=== PATIENT | female | born 1975 | race Caucasian/White ===

== ENCOUNTER 2016-07-25 16:38 | Emergency (ER) | payer OTHER ==
[~2016-07-25] VITALS: Ht 177.8 cm; Wt 109.1 kg
[~2016-07-25 16:38] MED LIST: OMEP20TA86 PO
[2016-07-25 16:52] VITALS: BP 164/90; PULSE 82; RESP 18; O2SAT 100
[2016-07-25] MEDS ORDERED: MetoCLOpramide 5 mg/mL 2 mL Inj IVPUSH ONE (18:05)
[2016-07-25] MEDS ORDERED: Donnatal-Lido-Mylant 1:1:1 15 mL Syringe PO ONE (18:05)
--- NOTE | 2016-07-25 18:10 | ED.REPORT ---
HPI-Abd Pain F 40 and Over Date of Service Jul 25, 2016 ED Provider: Angel Mccabe PA-C Tanya is a 41-year-old female otherwise healthy with a chief complaint of epigastric pain. States it is stabbing, rates it 8/10 and has been present for 5 days. She cannot differentiate what may aggravate or ameliorated. She states she has a long history of abdominal pain persisting by providers and not gotten diagnoses. She had an upper endoscopy done 1-2 years ago which noted a small hernia and some stomach inflammation according to the patient. She has been prescribed omeprazole which she reports taking daily. Today she denies vomiting, diarrhea, black/tarry stools, fever, chills, malaise, urinary symptoms. Denies history of hypertension, hyperlipidemia, diabetes, cardiac disease, cocaine or methamphetamine use or smoking. Nursing Notes Stated Complaint: ABDOMINAL PAIN, WEAKNESS Chief Complaint: Female Abdominal Pain Nursing Notes Reviewed: Yes Allergies: Coded Allergies: Sulfa (Sulfonamide Antibiotics) (Verified Allergy, Intermediate, HIVES, ) Scheduled Omeprazole (Omeprazole) 20 Mg Tablet.dr 20 MG PO DAILY Ondansetron ODT (Ondansetron ODT) 8 Mg Tab.rapdis 8 MG PO TID Scheduled PRN oxyCODONE (oxyCODONE) 5 Mg Tablet 5-10 MG PO Q4H PRN PRN For Pain General Time Seen by MD: 17:48 Chief Complaint Abdominal pain Sudden in Onset?: No Past Medical History Past Medical History Kidney stones Smoking History Never Smoker Review of Systems General: Denies fever, chills, malaise. HEENT: Denies congestion, headache, sore throat. Respiratory: Denies dyspnea, cough, shortness of breath, wheezing. Cardiovascular: Denies chest pain, palpitations. Gastrointestinal: Admits abdominal pain. Denies vomiting, diarrhea Genitourinary: Denies frequency, urgency, dysuria, hematuria. Otherwise as noted in HPI. Physical Exam General: Well appearing, well developed, obese, no acute distress. Appears to be resting comfortably on the gurney. Head: Atraumatic, normocephalic. Eyes: No scleral icterus or injection. No discharge. Vision grossly intact. ENT: Voice clear, hearing grossly intact. Respiratory: Regular rate and rhythm. Breath sounds present, clear to auscultation and equal bilaterally. No respiratory distress. No increased work of breathing, speaks in complete sentences. Cardiovascular: Regular rate and rhythm, without murmur, gallop or rub. No pedal edema. Gastrointestinal: Obese abdomen mildly tender in upper quadrants without guarding or rebound. Bowel sounds normoactive. Skin: Warm and dry. Rectal: No hemorrhoids, masses, normal tone. Negative tenderness. Stool guaiac negative. Neurological: Grossly nonfocal. Psychological: Alert and oriented. Speech appropriate, linear and logical. Behavior appropriate. Vital Signs Vital Signs (First) Date Time Temp Pulse Resp B/P Pulse Ox O2 Delivery O2 Flow Rate FiO2 07/25/16 16:52 36.6 82 18 164/90 100 07/25/16 20:53 Room Air Initial VS: Reviewed, Vital signs abnormal (elevated blood pressure) Interpretation & Diagnostics Interpretation & Diagnostics: Stool guaiac negative Lab Results Interpretation Result Diagram: 07/25/16 1832 07/25/16 1832 Test 07/25/16 18:20 07/25/16 18:32 Hold Urine Received (Received) White Blood Count 9.6th/mm3 (3.8-10.1) Red Blood Count 4.54mil/mm3 (3.90-5.20) Hemoglobin 7.9g/dL (12.0-15.6) Hematocrit 28.5% (35.0-46.0) Mean Corpuscular Volume 62.8fL (81-100) Mean Corpuscular Hemoglobin 17.4pg (27.0-35.0) Mean Corpuscular Hemoglobin Concent 27.7% (32.0-37.0) Red Cell Distribution Width 19.8% (12.3-15.4) Platelet Count 240bil/L (150-400) Neutrophils (%) (Auto) 62.6% (40-74) Lymphocytes (%) (Auto) 22.1% (14-46) Monocytes (%) (Auto) 7.2% (4-12) Eosinophils (%) (Auto) 7.1% (0-5) Basophils (%) (Auto) 0.9% (0-3) Sodium Level 137mEq/L (134-144) Potassium Level 3.4mEq/L (3.5-5.2) Chloride Level 100mEq/L (97-108) Carbon Dioxide Level 20mmol/L (18-29) Blood Urea Nitrogen 9mg/dL (6-24) Creatinine 0.50mg/dL (0.57-1.00) Estimat Glomerular Filtration Rate 193mL/min (>59) Glucose Level 105mg/dL (60-99) Calcium Level 9.1mg/dL (8.5-10.1) Total Bilirubin 0.2mg/dL (0.0-1.2) Aspartate Amino Transf (AST/SGOT) 17U/L (0-50) Alanine Aminotransferase (ALT/SGPT) 10U/L (0-32) Alkaline Phosphatase 56U/L (25-150) Total Protein 6.9g/dL (6.4-8.4) Albumin 3.7g/dL (3.4-5.0) Lipase 37U/L (13-60) Urinalysis Interpretation Urinalys reviewed and NL Re-Eval/Medical Decision Med Decision/Clinical Course 31-year-old female with a history of kidney stones and abdominal pain presents with abdominal pain. She describes epigastric pain rates 8/10 and describes a stabbing without radiation. Denies red flag symptoms for upper GI bleeding. Minimal response to GI cocktail, acetaminophen. Physical examination reveals only extremely mild tenderness in the upper quadrants. Stool guaiac is negative. Vital signs are normal. CMP revealed Mild hypokalemia, , low creatinine, normal nonfasting glucose. Not thought to be clinically relevant. CBC revealed a microcytic anemia with hematocrit of 28.5 and hemoglobin of 7.9. test negative. Urinalysis negative. I am reassured this unlikely cholecystitis, pancreatitis, bleeding ulcer, small bowel obstruction, nephrolithiasis, pyelonephritis. I also have little concern for cardiac in etiology as she has few risk factors and an atypical presentation. I believe she is stable and safe to be discharged home. Advise continuing omeprazole, [id number] analgesia and a small amount of oxycodone supplement. Advised close primary care follow-up and provided return precautions. I discussed this case with Dr. Alexis. Discharge & Departure Primary Impression: Abdominal pain Abdominal location: epigastric Qualified Code: R10.13 - Epigastric pain Additional Impression: Elevated blood pressure Disposition: Home Discharge Condition All VS Reviewed: Yes Condition: Stable Patient Instructions: Acute Abdominal Pain (ED) Additional Instructions: Evaluation in emergency department for abdominal pain. History physical, labs and urinalysis reassuring that there is no immediately dangerous process going on. No indication that you are bleeding in your stomach. I believe you are stable and safe to be discharged at this time. Pain is best managed with 1000 mg of acetaminophen (Tylenol) taken every 6 hours. I will write a prescription for a small amount of oxycodone to be taken every 4-6 hours for pain not controlled by the Tylenol. Please do not drive or drink alcohol within 4 hours of taking this medication. I will provide him a prescription for Zofran to help with nausea. Continue taking your omeprazole as prescribed. Contact your primary care provider tomorrow to arrange follow-up as soon as possible. Return to emergency department for any new or worsening symptoms including increasing pain, vomiting that does not respond to medication, or black/tarry stool. Referrals: Vero Ervin PA-C (PCP) EDSupervising Provider for APC: Paul Alexis MD copies to: Vero Ervin PA-C, Seth PA-C Jul 25, 2016 18:10
[2016-07-25] MEDS ORDERED: Diphen-Lido-Mylanta 1:1:1 Susp 120 mL PO ONE (18:40)
[2016-07-25 18:49] LABS: Mean Corpuscular Hemoglobin 17.4 pg (27.0-35.0); Mean Corpuscular Volume 62.8 fL (81-100); Platelet Count 240 bil/L (150-400)
[2016-07-25 18:53] LABS: BASOPHILS % (AUTO) 0.9 % (0-3); EOSINOPHILS % (AUTO) 7.1 % (0-5); MONOCYTES % (AUTO) 7.2 % (4-12); NEUTROPHILS % (AUTO) 62.6 % (40-74)
[2016-07-25] MEDS ORDERED: OXYC5TAB72 PO (20:31)
[2016-07-25] MEDS ORDERED: ONDA8TAB10 PO (20:31)
[2016-07-25 20:53] VITALS: BP 132/76; PULSE 77; RESP 18; O2SAT 100
[2016-08-15] MEDS ORDERED: PRE20 PO (10:06)
== END 2016-07-25 20:54 | disposition home or self-care (01) ==
LOC: SED 16:38
DX: R10.13 Epigastric pain (principal); R03.0 Elevated blood-pressure reading, without diagnosis of hypertension; Z87.442 Personal history of urinary calculi; Z88.2 Allergy status to sulfonamides

== ENCOUNTER 2016-08-03 12:05 | Observation (INO) | payer OTHER ==
[~2016-08-03] VITALS: Ht 177.8 cm; Wt 111.1 kg
[2016-08-03] VITALS (10 sets, daily range): BP systolic 110–135; BP diastolic 68–85; PULSE 64–83; RESP 10–20; O2SAT 98–100
[~2016-08-03 12:05] MED LIST changes: +ONDA8TAB10 PO; +OXYC5TAB72 PO
--- NOTE | 2016-08-03 12:16 | ED.REPORT ---
HPI-General Illness Date of Service Aug 03, 2016 ED Provider: Mauricio Ng MD 41 y/o female with the hx of chronic abdominal pain of unclear etiology presents to the ED as requested by her PCP due to low Hgb level. Pt complains of worsening fatigue, dizziness, and generalized weakness onset two months ago, worsening within the past 1 week. She presented to the ED on 07/25 for abd pain at which time basic labs were taken which showed a HGB of 7.4. She denies hematochezia, black tarry stool, syncope, chest pain, hemoptysis, melena, and SOB. She is currently on her period and believes her symptoms are increased at this time. She does not take iron supplements and has never had a blood transfusion. Colonoscopy and endoscopy were normal in the past. Nursing Notes Stated Complaint: RED BLOOD CELL COUNT LOW,WEAK,LIGHTHEADED Chief Complaint: General Complaint Nursing Notes Reviewed: Yes Allergies: Coded Allergies: Sulfa (Sulfonamide Antibiotics) (Verified Allergy, Intermediate, HIVES, ) Scheduled Omeprazole (Omeprazole) 20 Mg Tablet.dr 20 MG PO DAILY Scheduled PRN Ondansetron ODT (Ondansetron ODT) 8 Mg Tab.rapdis 8 MG PO TID PRN PRN For Nausea /Vomiting oxyCODONE (oxyCODONE) 5 Mg Tablet 5-10 MG PO Q4H PRN PRN For Pain General Time Seen by MD: 12:12 Chief Complaint Other (Fatigue) Hx Obtained From: Patient Arrived By: Walk-in Sudden in Onset?: No Onset Occurred: More than a week ago... (2 months) Symptom Duration: Constant Severity: Current: No pain currently Severity: Maximum: No pain Recent Healthcare: Recent doctor visit, Recent testing Past Medical History Past Medical History GERD Hiatal hernia Chronic abdominal pain - unclear etiology Hx kidney stones Past Surgical History Lithotripsy Family History Colon CA Smoking History Never Smoker Social History Alcohol Use: Denies alcohol use Drug Use: Denies drug use Ambulatory Status Independent Review of Systems Full Review of Systems Constitutional: Reports: Fatigue, Weakness - generalized Respiratory: Denies: Prod cough, bloody, Shortness of breath Cardiovascular: Denies: Chest pain GI: Reports: Abdominal pain (chronic), Denies: Bloody/tarry stool, Hematochezia, Melena, Nausea, Vomiting Neurologic: Reports: Dizziness, Lightheaded, Denies: Syncope Complete sys rev & neg: except as marked. Physical Exam Vital Signs Vital Signs Date Time Temp Pulse Resp B/P Pulse Ox O2 Delivery O2 Flow Rate FiO2 08/03/16 12:07 37.0 83 10 135/84 100 Room Air Initial VS: Reviewed, Vital signs normal Head / Eyes: Atraumatic, Normocephalic, PERRL ENT: Mucous membranes moist, Conjunctiva normal, No scleral icterus Neck: Supple, Full range of motion Respiratory: Breath sounds normal, Clear to auscultation, No respiratory distress Cardiovascular: Regular rate & rhythm, Heart sounds normal, Intact distal pulses Extremities: Vascular intact, Neuro intact, No swelling, No tenderness Skin: Warm, Dry, No cyanosis Neurologic: Alert, Oriented, Nonfocal Psychiatric: Mood/affect normal, Behavior normal, Normal thought content General/Constitutional: Awake, Alert, No acute distress, Cooperative, Not toxic appearing Abdomen: Atraumatic, Soft, Non-tender, No guarding, No rebound Rectum / Perineum: Blood - occult heme -, No gross blood Interpretation & Diagnostics Lab Results Interpretation Result Diagram: 08/03/16 1230 08/03/16 1230 Test 08/03/16 12:30 White Blood Count 8.8th/mm3 (3.8-10.1) Red Blood Count 4.30mil/mm3 (3.90-5.20) Hemoglobin 7.3g/dL (12.0-15.6) Hematocrit 27.5% (35.0-46.0) Mean Corpuscular Volume 64.0fL (81-100) Mean Corpuscular Hemoglobin 17.0pg (27.0-35.0) Mean Corpuscular Hemoglobin Concent 26.5% (32.0-37.0) Red Cell Distribution Width 19.7% (12.3-15.4) Platelet Count 297bil/L (150-400) Neutrophils (%) (Auto) 68.3% (40-74) Lymphocytes (%) (Auto) 18.9% (14-46) Monocytes (%) (Auto) 6.7% (4-12) Eosinophils (%) (Auto) 4.1% (0-5) Basophils (%) (Auto) 1.9% (0-3) Prothrombin Time 9.8sec (8.1-12.5) Prothromb Time International Ratio 0.92ratio Sodium Level 140mEq/L (134-144) Potassium Level 3.6mEq/L (3.5-5.2) Chloride Level 102mEq/L (97-108) Carbon Dioxide Level 22mmol/L (18-29) Blood Urea Nitrogen 10mg/dL (6-24) Creatinine 0.66mg/dL (0.57-1.00) Estimat Glomerular Filtration Rate 140mL/min (>59) Glucose Level 87mg/dL (60-99) Calcium Level 9.0mg/dL (8.5-10.1) Iron Level 15ug/dL (35-150) Total Iron Binding Capacity 357ug/dL (250-450) Percent Iron Saturation 4%sat (15-50) Unsaturated Iron Binding 342.0ug/dL Ferritin 6ng/mL (13-150) Total Bilirubin 0.2mg/dL (0.0-1.2) Aspartate Amino Transf (AST/SGOT) 15U/L (0-50) Alanine Aminotransferase (ALT/SGPT) 8U/L (0-32) Alkaline Phosphatase 60U/L (25-150) Total Protein 6.7g/dL (6.4-8.4) Albumin 3.8g/dL (3.4-5.0) Hold Moss Top Tube Received (Received) Re-Eval/Medical Decision Med Decision/Clinical Course 41-year-old female history of chronic anemia and chronic abdominal pain sent in by primary doctor for hemoglobin of 7.4 and dizziness. She was checked one week ago with a hemoglobin of 7.9. She is on her period which she reports has been heavy. No blood in her stools. She has had normal colonoscopies in the past. She is guaiac negative here. She still complaining of dizziness and her hemoglobin is 7.3. Worsening dizziness. Will admit for blood transfusion with 2 units given symptomatic anemia. Observation. Time of Eval: 14:43 Re-Evaluation/Progress Note: Pt rechecked. Informed pt of need for admission. pt understand and agrees with plan for admission. All questions addressed. Consultation : Referral / Consult Name: Vitaliy Monzon MD Consulted With: Hospitalist Call Returned at: 14:42 Tower Technician: Will see patient, Agrees with eval, Agrees with plan, Accepts admit Counseled Regarding: Diagnosis, Lab results, Need for admission Discharge & Departure Primary Impression: Symptomatic anemia Disposition: ADMITTED TO HOSPITAL Discharge Condition All VS Reviewed: Yes Condition: Stable Referrals: Adriano Rosa DO (PCP) Scribe Attestation Portions of this note were transcribed by Elina Winter and Clifton Tonwsend. I, Dr. Ng personally performed the history, physical exam and medical decision-making;I reviewed and confirmed the accuracy of the information in the transcribed note. Signed by Elina Winter and Jeannie May. 08/03/16. 1446 copies to: Adriano Rosa Ben M MD Aug 03, 2016 12:16 Elina Winter Aug 03, 2016 12:25 CLIFTON TOWNSEND Aug 03, 2016 13:42
[2016-08-03 12:43] LABS: BASOPHILS % (AUTO) 1.9 % (0-3); EOSINOPHILS % (AUTO) 4.1 % (0-5); MONOCYTES % (AUTO) 6.7 % (4-12); NEUTROPHILS % (AUTO) 68.3 % (40-74); Platelet Count 297 bil/L (150-400)
[2016-08-03 13:06] LABS: INR 0.92 ratio
[2016-08-03] MEDS ORDERED: ONDA8TAB10 PO (13:48)
[2016-08-03] MEDS ORDERED: HYDROcodone-APAP 5-325 mg Tablet PO PRN (14:45)
[2016-08-03] MEDS ORDERED: Ondansetron 2 mg/mL 2 mL Inj IVPUSH PRN (14:45)
[2016-08-03] MEDS ORDERED: Polyethylene Glycol (PEG) 17 Gm Powder PO PRN (14:45)
[2016-08-03] MEDS ORDERED: Alum-Mag Hydrox-Simeth 30 mL Suspension PO PRN ×2 (14:45)
[2016-08-03] MEDS ORDERED: diphenhydrAMINE 25 mg Capsule PO ONE ×2 (14:50→23:20)
--- NOTE | 2016-08-03 14:57 | PCM.HPMED ---
Subjective Date of Service Aug 03, 2016 Primary Provider: Admitting Physician: Primary Care Physician: Adriano Rosa DO Attending Physician: Admit Status: From the Emergency Department, 23-Hour Observation Chief Complaint: Dizziness, Weakness, Anemia History of Present Illness: Patient is a 41 year old female with a past medical history of chronic abdominal pain, and GERD. She presents to the ER at [facility] complaining of dizziness and weakness over the last week. Pt states her symptoms have been present for approximately 8 weeks now, but seem to be worse over the last week. She denies any shortness of breath, chest pain, palpitations, and fainting. She further denies any hematochezia, melena, nausea, and vomiting. She does report occasional, chronic abdominal pain however this has been worked up in the past. Pt was seen by her PCP earlier today and found to be significantly anemic. She was referred to the ER for further evaluation and management. Pt has no other complaints or concerns at this time. Review of Systems: All systems reviewed and are negative except for what has already been mentioned in the HPI. Allergies Coded Allergies: Sulfa (Sulfonamide Antibiotics) (Verified Allergy, Intermediate, HIVES, ) Home Medications None PMH 1. Chronic Abdominal Pain 2. GERD Family History 1. Colon Cancer Social History Hx Alcohol Use: No Hx Substance Use: No Hx Tobacco Use: No Smoking Status: Never Smoker Exam Vital Signs Vital Sign - Last Date Time Temp Pulse Resp B/P Pulse Ox O2 Delivery O2 Flow Rate FiO2 08/03/16 12:07 37.0 83 10 135/84 100 Room Air Exam GENERAL: NAD, Pt laying in bed comfortably HEENT: AT/NC, PERRLA, EOMI, Mucus Membranes are moist CARDIAC: RRR; No M/R/G PULM: CTAB; No wheezes or rhonchi bilaterally ABD: Soft, Nontender, Nondistended, Positive bowel sounds in all quadrants, No Hepatosplenomegaly appreciated EXT: No C/C/E; No calf tenderness bilaterally SKIN: Warm, Dry, Pale, and Intact NEURO: Alert and oriented x3; Following all commands PSYCH: Normal mood and affect Lab and Diagnostics Result Diagram: 08/03/16 1230 08/03/16 1230 Assessment & Plan Patient is a 41 year old female with a past medical history of chronic abdominal pain and GERD who presents to the ER with symptomatic anemia. 1. Anemia - This does not appear secondary to acute blood loss - Pt appears to have iron deficiency anemia - Transfuse 2 units PRBCs now - Will order iron studies now - Pt should follow-up with a Venipuncturist upon discharge from hospital - Check FOBT now - Repeat CBC in AM 2. GERD - Will start pt on IV Famotidine now 3. Disposition - Anticipate pt will discharge to home in AM depending on clinical course FULL CODE, per discussion with patient at bedside Vitaliy Monzon MD Aug 03, 2016 14:57
--- NOTE | 2016-08-03 15:30 | NUR ---
Admit Pt admitted to floor. Pt currently denies pain. A&Ox3. Able to walk to her bed, steady gait. Pt c/o feeling weak and that her head "feels weird." Awaiting PRBC's from the lab to transfuse. Bed locked in low position and call light within reach. Will continue to monitor.
[2016-08-03] MEDS: 0.9% Sodium Chloride 250 ML IV SCH (15:46)
[2016-08-03 16:12] LABS: APPEARANCE,URINE HAZY (CLEAR,HAZY); COLOR,URINE YELLOW (YELLOW); OCCULT BLOOD,URINE LARGE (NEGATIVE); PH,URINE 5.5 (5.0-8.0); UROBILINOGEN,URINE NORMAL (NORMAL)
[2016-08-03] MEDS: Ondansetron 2 mg/mL 2 mL Inj IVPUSH PRN ×3 (16:25→23:30)
--- NOTE | 2016-08-03 17:50 | NUR ---
Delay in blood transfusion Blood transfusion delayed due to inadequate IV line. IVT called and IV restarted in right AC. Blood transfusion resumed. Pt continues to tolerate well without any adverse signs/symptoms.
[2016-08-03] MEDS: Famotidine Inj 20 MG in IV Premix 1 EACH IV SCH (20:12)
[2016-08-03] MEDS: oxyCODONE-Acetamin 5-325 mg Tablet PO PRN (23:22)
[2016-08-04] VITALS (8 sets, daily range): BP systolic 117–139; BP diastolic 74–82; PULSE 63–75; RESP 16–18; O2SAT 97–100
--- NOTE | 2016-08-04 04:45 | NUR ---
Shift Note: Pt. received 2 units of PRBC since admit to floor, tolerated well, no reactions noted, pending CBC this am, Vitals stable, given 1 dose of prn percocet for pain with reports of relief, qhourly checks, call light in reach, all needs attended.
[2016-08-04 07:11] LABS: BASOPHILS % (AUTO) 2.3 % (0-3); EOSINOPHILS % (AUTO) 5.9 % (0-5); MONOCYTES % (AUTO) 8.4 % (4-12); Mean Corpuscular Hemoglobin 19.4 pg (27.0-35.0); Mean Corpuscular Volume 68.2 fL (81-100); NEUTROPHILS % (AUTO) 53.8 % (40-74); Platelet Count 238 bil/L (150-400)
[2016-08-04] MEDS: oxyCODONE-Acetamin 5-325 mg Tablet PO PRN ×3 (09:07→19:04)
[2016-08-04] MEDS: Ondansetron 2 mg/mL 2 mL Inj IVPUSH PRN ×3 (09:07→19:04)
[2016-08-04] MEDS: Famotidine Inj 20 MG in IV Premix 1 EACH IV SCH ×2 (09:08→20:36)
--- NOTE | 2016-08-04 10:17 | PCM.PNMED ---
Subjective Date of Service Aug 04, 2016 Subjective Pt states she feels somewhat better this morning post transfusion. She states she continues to have feel slightly weak and mildly dizzy. Pt continues to deny shortness of breath. Pt has no other complaints or concerns at this time. Exam Vital Signs Vital Sign - Last Date Time Temp Pulse Resp B/P Pulse Ox O2 Delivery O2 Flow Rate FiO2 08/04/16 09:23 67 08/04/16 08:57 37.0 18 117/78 100 Room Air Intake and Output 08/03/16 08/03/16 08/04/16 Cumulative From/Thru 15:00 23:00 07:00 08/03/16 12:07 - 08/04/16 04:22 Intake Total 360 ml 1770 ml 2130 ml Output Total 700 ml 700 ml Balance -340 ml 1770 ml 1430 ml Intake Oral 360 ml 1020 ml 1380 ml IV Total 450 ml 450 ml Packed Cells 300 ml 300 ml Output Urine Total 700 ml 700 ml # Voids 5 5 Exam GENERAL: NAD, Pt laying in bed comfortably HEENT: AT/NC, PERRLA, EOMI, Mucus Membranes are moist CARDIAC: RRR; No M/R/G PULM: CTAB; No wheezes or rhonchi bilaterally ABD: Soft, Nontender, Nondistended, Positive bowel sounds in all quadrants, No Hepatosplenomegaly appreciated NEURO: Alert and oriented x3; Following all commands IVs and Medications Medications Reviewed: Medications were reviewed in detail Lab and Diagnostics Result Diagram: 08/04/1643 08/04/16 0643 Assessment & Plan Patient is a 41 year old female with a past medical history of chronic abdominal pain and GERD who presents to the ER with symptomatic anemia. 1. Iron Deficiency Anemia, Severe - Iron studies consistent with Iron Deficiency Anemia - Start Fe 325 mg PO daily now - Check H/H q 8 hours x3 - Pt wasr tansfused with 2 units PRBCs on 08/03/2016 - Pt should follow-up with a Kosher Butcher upon discharge from hospital - Check FOBT when pt has a BM - Repeat CBC in AM 2. GERD - Continue IV Famotidine for now 3. Disposition - Anticipate pt will discharge to home in AM VTE Mechanical Devices: Intermittant Pneumatic CD Vitaliy Monzon MD Aug 04, 2016 10:17
--- NOTE | 2016-08-04 11:05 | NUR ---
No Plan for Discharge Dr. Monzon was not present at morning rounds, but patient stated Dr. Monzon did come see them at bedside and stated they will remain another night.
[2016-08-04] MEDS: 0.9% Sodium Chloride 250 ML IV SCH (14:50)
--- NOTE | 2016-08-04 15:42 | NUR ---
Rash/Itching Contacted Dr. Monzon with the following cook page: Patient is reporting rash on her arms with some itching, requesting Benadryl. Please advise. Thank you. [place] [facility] [place] [id number]
--- NOTE | 2016-08-04 15:47 | NUR ---
Benadryl Order Verbal order from Dr. Monzon, PO Benadryl 25mg q 6 hr prn itching.
[2016-08-04] MEDS: diphenhydrAMINE 25 mg Capsule PO PRN (15:58)
[2016-08-05] MEDS: Ondansetron 2 mg/mL 2 mL Inj IVPUSH PRN ×3 (00:09→13:58)
[2016-08-05] MEDS: diphenhydrAMINE 25 mg Capsule PO PRN (00:09)
[2016-08-05] MEDS: oxyCODONE-Acetamin 5-325 mg Tablet PO PRN ×2 (00:10→09:16)
[2016-08-05 02:00] VITALS: BP 119/76; PULSE 72; RESP 17; O2SAT 98
[2016-08-05 06:00] VITALS: BP 105/67; PULSE 62; RESP 16; O2SAT 99
[2016-08-05 06:12] VITALS: PULSE 66
[2016-08-05] MEDS: Famotidine Inj 20 MG in IV Premix 1 EACH IV SCH (08:06)
[2016-08-05] MEDS ORDERED: FERR-74 PO (08:08)
--- NOTE | 2016-08-05 08:09 | PCM.DIMED ---
Discharge Instructions Date of Service Aug 05, 2016 Dates of Hospitalization Aug 03, 2016 at 15:04 Discharge Diagnosis Discharge Diagnosis 1. Iron Deficiency Anemia 2. GERD Diet Heart Healthy Activity No restrictions Call your provider Fever or Chills, Shortness of breath, Bleeding, Chest pain, Vomitting, Excessive diarrhea, Weakness (unilateral) Patient Instructions Follow-up with PCP in: 1 week (Pt to call for an appointment) Provider: Gurdeep Leon MD Follow-up in: 2 weeks (Pt to call for an appointment) Vitaliy Monzon MD Aug 05, 2016 08:09
[2016-08-05 08:56] VITALS: PULSE 67
--- NOTE | 2016-08-05 10:35 | PCM.DC.MED ---
Discharge Summary Date of Service Aug 05, 2016 Dates of Hospitalization Date of Hospital Admission Aug 03, 2016 at 15:04 Date of Discharge: Aug 05, 2016 Providers: Admitting Physician: Bronson Louise MD Primary Care Physician: Adriano Rosa DO Attending Physician: Bronson Louise MD Diagnosis at Time of Discharge Diagnosis at Time of Discharge 1. Iron Deficiency Anemia 2. GERD Brief History Patient is a 41 year old female with a past medical history of chronic abdominal pain, and GERD. She presents to the ER at [facility] complaining of dizziness and weakness over the last week. Pt states her symptoms have been present for approximately 8 weeks now, but seem to be worse over the last week. She denies any shortness of breath, chest pain, palpitations, and fainting. She further denies any hematochezia, melena, nausea, and vomiting. She does report occasional, chronic abdominal pain however this has been worked up in the past. Pt was seen by her PCP earlier today and found to be significantly anemic. She was referred to the ER for further evaluation and management. Pt has no other complaints or concerns at this time. Hospital Course Patient is a 41 year old female with a past medical history of chronic abdominal pain and GERD who presents to the ER with symptomatic anemia. 1. Iron Deficiency Anemia, Severe - Iron studies consistent with Iron Deficiency Anemia - Continue Ferrous Sulfate 325 mg PO daily - H/H is stable post transfusion - Pt was transfused with 2 units PRBCs on 08/03/2016 - Pt should follow-up with a [employer]er upon discharge from hospital and PCP within a week of discharge to have a repeat CBC checked 2. GERD - Continue PPI - Pt to follow-up with Gastroenterology at her scheduled appointment on 2016 3. Disposition - Pt discharged from hospital in good/stable condition Exam Vital Signs (Last) Date Time Temp Pulse Resp B/P Pulse Ox O2 Delivery O2 Flow Rate FiO2 08/05/16 08:56 67 08/05/16 06:00 36.7 16 105/67 99 Room Air Exam GENERAL: NAD, Pt laying in bed comfortably HEENT: AT/NC, PERRLA, EOMI, Mucus Membranes are moist CARDIAC: RRR; No M/R/G PULM: CTAB; No wheezes or rhonchi bilaterally ABD: Soft, Nontender, Nondistended, Positive bowel sounds in all quadrants, No Hepatosplenomegaly appreciated EXT: No C/C/E; No calf tenderness bilaterally SKIN: Warm, Dry, Coker, and Intact NEURO: Alert and oriented x3; Following all commands PSYCH: Normal mood and affect Test 08/03/16 12:30 08/03/16 15:37 08/04/16 06:43 08/05/16 00:58 Prothrombin Time 9.8sec (8.1-12.5) Prothromb Time International Ratio 0.92ratio Iron Level 15ug/dL (35-150) Total Iron Binding Capacity 357ug/dL (250-450) Percent Iron Saturation 4%sat (15-50) Unsaturated Iron Binding 342.0ug/dL Ferritin 6ng/mL (13-150) Hold Moss Top Tube Received (Received) Urine Color Yellow (YELLOW) Urine Appearance Hazy (CLEAR,HAZY) Urine pH 5.5 (5.0-8.0) Urine Specific [place] 1.025 (1.003-1.035) Urine Protein Negativemg/dL (NEG,TRACE) Urine Glucose (UA) Negativemg/dL (NEGATIVE) Urine Ketones Negativemg/dL (NEGATIVE) Urine Occult Blood Large (NEGATIVE) Urine Nitrite Negative (NEGATIVE) Urine Bilirubin Negative (NEGATIVE) Urine Urobilinogen Normalmg/dL (NORMAL) Urine Leukocyte Esterase Trace (NEGATIVE) Urine RBC 11-50/hpf (0-2) Urine WBC 6-10/hpf (0-5) Urine Epithelial Cells Many/hpf (NONE-MOD) Urine Crystals None seen (NONE SEEN) Urine Bacteria None/hpf (NONE-FEW) Urine Hyaline Casts None/lpf (NONE) Urine Granular Casts None seen (NONE SEEN) Urine Waxy Casts None seen (NONE SEEN) Urine Red Blood Cell Casts None seen (NONE SEEN) Urine White Blood Cell Casts None seen (NONE SEEN) Urine Mucus Present (None Seen) Urine Trichomonas None seen (NONE SEEN) Urine Yeast None (NONE SEEN) Urine Culture Reflexed Indicated White Blood Count 6.0th/mm3 (3.8-10.1) Red Blood Count 4.34mil/mm3 (3.90-5.20) Mean Corpuscular Volume 68.2fL (81-100) Mean Corpuscular Hemoglobin 19.4pg (27.0-35.0) Mean Corpuscular Hemoglobin Concent 28.4% (32.0-37.0) Red Cell Distribution Width 23.5% (12.3-15.4) Platelet Count 238bil/L (150-400) Neutrophils (%) (Auto) 53.8% (40-74) Lymphocytes (%) (Auto) 29.4% (14-46) Monocytes (%) (Auto) 8.4% (4-12) Eosinophils (%) (Auto) 5.9% (0-5) Basophils (%) (Auto) 2.3% (0-3) Sodium Level 140mEq/L (134-144) Potassium Level 3.9mEq/L (3.5-5.2) Chloride Level 103mEq/L (97-108) Carbon Dioxide Level 22mmol/L (18-29) Blood Urea Nitrogen 7mg/dL (6-24) Creatinine 0.60mg/dL (0.57-1.00) Estimat Glomerular Filtration Rate 156mL/min (>59) Glucose Level 86mg/dL (60-99) Calcium Level 8.4mg/dL (8.5-10.1) Total Bilirubin 0.3mg/dL (0.0-1.2) Aspartate Amino Transf (AST/SGOT) 15U/L (0-50) Alanine Aminotransferase (ALT/SGPT) 8U/L (0-32) Alkaline Phosphatase 52U/L (25-150) Total Protein 5.4g/dL (6.4-8.4) Albumin 3.2g/dL (3.4-5.0) Hemoglobin 8.2g/dL (12.0-15.6) Hematocrit 29.3% (35.0-46.0) Discharge Medications Discharge Medications Ferrous Sulfate (Feosol) 325 Mg Tablet 325 MG PO DAILYWM Prescribed by: BRONSON LOUISE MD Omeprazole (Omeprazole) 20 Mg Tablet.dr 20 MG PO DAILY (Reported) As needed Ondansetron ODT (Ondansetron ODT) 8 Mg Tab.rapdis 8 MG PO TID PRN PRN For Nausea /Vomiting (Reported) oxyCODONE (oxyCODONE) 5 Mg Tablet 5-10 MG PO Q4H PRN PRN For Pain Prescribed by: NATHALIA BEE Followup Plan Discharge Diet: Heart Healthy Discharge Activity: No restrictions Follow-up with PCP in: 1 week (Pt to call for an appointment) Provider: Óscar Madrid MD Follow-up in: 2 weeks (Pt to call for an appointment) Bronson Louise MD Aug 05, 2016 10:35
[2016-08-05 11:00] VITALS: BP 118/59; PULSE 72; RESP 12
[2016-08-05] MEDS ORDERED: ONDA8TAB10 PO (11:11)
[2016-08-05] MEDS: 0.9% Sodium Chloride 250 ML IV SCH (14:46)
--- NOTE | 2016-08-05 15:08 | NUR ---
Discharge Per Nghia Louie, stated DC instructions reviewed with pt. Pt stated understanding All belongings taken. Taken out in w/ch to home in private vehicle with family. DC packet in white belongings bag.
[2016-08-15] MEDS ORDERED: PRE20 PO (10:06)
== END 2016-08-05 13:05 | disposition home or self-care (01) ==
LOC: SED 12:05 → MOC 15:04
PROVIDERS: ADMIT Family Medicine; ATTEND Family Medicine
DX: D50.9 Iron deficiency anemia, unspecified (principal); K21.9 Gastro-esophageal reflux disease without esophagitis; G89.29 Other chronic pain; R10.9 Unspecified abdominal pain
CPT/HCPCS: 36415; 80053; 81000; 82728; 83540; 83550; 85014; 85018; 85025; 85610; 86850; 86922; 87086; 87088; 99285; G0378; J2270; J2405; J3490; J7050

== ENCOUNTER 2016-08-16 10:17 | Day surgery (SDC) | payer OTHER ==
[~2016-08-16] VITALS: Ht 177.8 cm; Wt 108.9 kg
[~2016-08-16 10:17] MED LIST changes: +0.9% Sodium Chloride 1,000 ML IV SCH; +FERR-74 PO; -OXYC5TAB72 PO; +PRE20 PO; +Sodium Chloride LOK Flush 10 mL Syringe IV PRN; +fentaNYL-PF 50 mCg/mL 2 mL Inj IVPUSH PRN
[2016-08-16 11:29] VITALS: BP 126/89; PULSE 76; RESP 16; O2SAT 100
[2016-08-16] MEDS ORDERED: Ondansetron 8 mg ODT Tablet ONE (11:40)
[2016-08-16] MEDS ORDERED: Ondansetron 8 mg ODT Tablet PO ONE (12:10)
[2016-08-16] MEDS ORDERED: 0.9% Sodium Chloride 1,000 ML IV ONE (12:51)
--- NOTE | 2016-08-16 13:04 | PCM.ENDEGD ---
EGD Date of Service: Aug 16, 2016 Physician Chon Gray MD Pre Procedure Diagnosis: Anemia Post Procedure Dx & Findings: Esophageal scarring with irritation gastritis Procedure Esophagogastroduodenoscopy PROCEDURE IN DETAIL: After proper sedation, Olympus video endoscope was inserted into patient's mouth and esophagus was successfully intubated. Scope introduced esophagus. Esophagus showed normal shiny whitish mucosa consistent with squamous cell component. Z line was irregular at 37 cm from the incisors. Some scarring noted as well. Biopsies obtained. Also at that level, there two small 2 mm or less diverticulum. Scope further advanced to the stomach. The antrum and to the prepylorus, there were half a dozen reddish edema this nodular mucosa possibly from healing ulcers. Biopsies are obtained. Cardia fundus body antrum pylorus were all visualized. Retroflexion was done. Stomach was easily inflated and deflatable using air. Scope further events to the distal duodenum. Duodenum revealed normal villous structures with normal appearing folds without any mass ulcer erosion. 5 biopsies obtained to rule out celiac disease. Impression Esophagitis with scarring status post biopsy Gastritis Recommendation Await biopsy. Follow-up with Dr. Alcala in the GI clinic Presedation Assessment Risks and Benefits Informed consent was obtained from the patient after all risks and benefits including but not limited to drug reaction, infection, pain, bleeding, perforation, as well as alternatives were discussed. Patient monitoring Continuous pulse oximetry, cardiac monitoring, blood pressure monitoring, IV access, and oxygen at 2L per nasal cannula. Periprocedural Fentanyl: Fentanyl 125mcg Incrementally Midazolam: Midazolam 6mg Incrementally Complications There were no periprocedural complications identified. Post Procedure Plan Post Procedure Recommendations 1. Restrict activities today. 2. Resume normal activities in the morning. 3. Resume medications. 4. GERD behavioral modification: - Avoid fatty, acidic, spicy, large meals - Do not lie down after meals - Do not eat or drink anything for at least 2 1/2 hours before going to bed at night - Discontinue tobacco and alcohol - Decrease or avoid caffeine - Avoid chocolate and mints - Decrease weight - Avoid aspirin and non steroidal anti-inflammatory agents (NSAID) such as Aleve, Advil, Mobic, Naproxen, Ibuprofen, etc 5. Add proton pump inhibitor. Take 30 minutes before 1st meal of the day. 6. Patient informed of normal post procedure side effects as bloating, drowsiness, blood streaking in the stool 7. If gastric biopsy reveal H.pylori, continue with appropriate treatment 8. If small bowel biopsy reveals celiac, continue with appropriate treatment 9. Please don't hesitate to call me with any questions Chon Gray MD Aug 16, 2016 13:04
[2016-08-16 13:05] VITALS: BP 121/76; PULSE 65; RESP 16; O2SAT 100
--- NOTE | 2016-08-16 13:07 | PCM.ENDCOL ---
Colonoscopy Date of Service: Aug 16, 2016 Physician Chon Gray MD Pre Procedure Diagnosis: Anemia Post Procedure Dx & Findings: Diverticula and hemorrhoids Procedure Colonoscopy PROCEDURE IN DETAIL: Prep adequate Withdrawal time 11 minutes After unremarkable rectal examination the Olympus video colonoscope was inserted patient's anal canal and was advanced to cecum. Landmarks were identified including the ileocecal valve and appendiceal orifice. Scope further events the terminal ileum. We advanced 10 cm. Normal villous structure noted without ulcer or vascular lesion. Scope was withdrawn systematically. Visualized colonic mucosa showed healthy shiny mucosa with normal healthy-appearing vasculature. Patient had diverticula small mostly but few were large in the sigmoid colon however there were isolated diverticuli all the way into the cecum. In the rectum retroflexion was done which showed hemorrhoids. Anal canal was inspected carefully on the way out and hemorrhoids noted. Impression Normal TI Diverticuli No source of anemia Hemorrhoids Recommendation Repeat colonoscopy at 50 years if there is no personal or family history of colon cancer or polyp. If there is repeated in 5 years. Diverticular diet Presedation Assessment Risks and Benefits Informed consent was obtained from the patient after all risks and benefits including but not limited to drug reaction, infection, pain, bleeding, perforation, as well as alternatives were discussed. Patient monitoring Continuous pulse oximetry, cardiac monitoring, blood pressure monitoring, IV access, and oxygen at 2L per nasal cannula. Periprocedural Fentanyl: Fentanyl 25mcg Midazolam: Midazolam 3mg Incrementally Complications There were no periprocedural complications identified. Post Procedure Plan Post Procedure Recommendations 1. Restrict activities today. 2. Resume normal activities in the morning. 3. Resume medications. 4. Patient informed of normal post procedure side effects as bloating, drowsiness, blood streaking in the stool. 5. average risk CRCS. If colon polyps come back as: -Hyperplastic- can repeat colonoscopy in 10 years -Tubular adenoma- repeat colonoscopy in 5 years -Tubulovillous/villous adenoma- repeat colonoscopy in 3 years -If any dysplasia- return to clinic as soon as possible 6. Please don't hesitate to call me with any questions. Chon Gray MD Aug 16, 2016 13:07
[2016-08-16 13:15] VITALS: BP 116/72; PULSE 68; RESP 16; O2SAT 100
[2016-08-16 13:25] VITALS: BP 120/74; PULSE 73; RESP 16; O2SAT 100
--- NOTE | 2016-08-17 15:43 | PATH ---
SURGICAL PATHOLOGY Attending Physician:Chon Gray M.D. CASE STATUS: Signed Out PATIENT NAME: ABBEY DRAKE PID: [id number] : 1975 DATE COLLECTED:08/16/2016 20:14 SPECIMEN: 1: Duodenum, Biopsy 2: Gastric, Biopsy 3: Esophagus, Biopsy CLINICAL HISTORY: 1). DUODENAL BIOPSY 2). GASTRIC BIOPSY 3). ESOPHAGEAL BIOPSY FINAL DIAGNOSIS: 1. Duodenum, Biopsy: Duodenal mucosa with no diagnostic abnormality. Negative for active inflammation, features of sprue, dysplasia, or malignancy. 2. Gastric Biopsy: Gastric antral-type mucosa with mild chronic gastritis and focal features of reactive gastropathy. No definite H. pylori organisms identified by H&E stain. Immunohistochemistry studies pending; results will be reported as an addendum. Negative for intestinal metaplasia. Negative for dysplasia and malignancy. 3. Esophageal Biopsy: Squamocolumnar junctional mucosa with no diagnostic abnormality. Negative for intestinal metaplasia. Negative for dysplasia and malignancy. ICD10: K29.7 GROSS DESCRIPTION: The specimen is received in three formalin filled containers labeled with the patient's name. 1). The specimen is sublabeled "duodenal" and consists of 4 portions of tissue which aggregate to 0.3 x 0.3 x 0.2 CM. The specimen is entirely submitted in cassette 1A. 2). The specimen is sublabeled "gastric" and consists of 2 portions of tissue which aggregate to 0.3 x 0.3 x 0.2 CM. The specimen is entirely submitted in cassette 2A. 3). The specimen is sublabeled "esophageal" and consists of 2 portions of tissue which aggregate to 0.3 x 0.2 x 0.2 CM. The specimen is entirely submitted in cassette 3A. 08/16/2016 [facility] ICD-9 CODES: CPT CODES: 1: 14842 2: 95503, 50567 3: 55184 PROCEDURE/ADDENDA: Immunohistochemistry SPI Interpretation {Not Entered} Results-Comments Part 2: This addendum is issued to report the results of immunohistochemistry. The final diagnosis is unchanged. An immunohistochemical stain for Helicobacter was performed to evaluate for Helicobacter organisms and is negative. A control stain showed appropriate reactivity. This test was developed and its performance characteristics determined by [employer]. It has not been cleared or approved by the [place]. [place]. Food and Drug Administration. The FDA has determined that such clearance or approval is not necessary. This test is used for clinical purposes. It should not be regarded as investigational or for research. Electronically Signed Out Farnaz Priest MD Electronically Signed Out Akiko Wilson MD [facility] [address], [place] [address] Technical component performed at [facility], [address], [place], [address]
== END 2016-08-16 23:59 | disposition home or self-care (01) ==
LOC: END 10:17
PROVIDERS: ATTEND Internal Medicine
DX: D50.9 Iron deficiency anemia, unspecified (principal); K57.30 Diverticulosis of large intestine without perforation or abscess without bleeding; K64.8 Other hemorrhoids; Z80.0 Family history of malignant neoplasm of digestive organs; K29.50 Unspecified chronic gastritis without bleeding; K20.9 Esophagitis, unspecified; K31.9 Disease of stomach and duodenum, unspecified; K21.9 Gastro-esophageal reflux disease without esophagitis
CPT/HCPCS: 43239; 45378; 88305; 88342; 99153; G0500; J2250; J3010; J7030

== ENCOUNTER 2016-12-01 09:37 | Emergency (ER) | payer OTHER ==
[~2016-12-01] VITALS: Ht 177.8 cm; Wt 109.1 kg
[~2016-12-01 09:37] MED LIST changes: -0.9% Sodium Chloride 1,000 ML IV SCH; -ONDA8TAB10 PO; -Sodium Chloride LOK Flush 10 mL Syringe IV PRN; -fentaNYL-PF 50 mCg/mL 2 mL Inj IVPUSH PRN
[2016-12-01 09:51] VITALS: BP 141/79; PULSE 78; RESP 18; O2SAT 100
--- NOTE | 2016-12-01 10:54 | ED.REPORT ---
HPI-Abd Pain F 40 and Over Date of Service Dec 01, 2016 ED Provider: Mauricio Ng MD Pt is a 41 y/o female w/ a hx of chronic abdominal pain of unclear etiology, GERD, nephrolithiasis, presenting to the ED c/o worsening epigastric abdominal pain onset last night. She has been experiencing abdominal pain for chronically for years and has had a full workup which has been negative so far. She is taking Omeprazole which does not help. She c/o associated nausea. Pt denies fever, vomiting, acid reflux, back pain, constipation, diarrhea, dysuria. Only abdominal surgery was a . Nursing Notes Stated Complaint: ABD PAIN Chief Complaint: Female Abdominal Pain Nursing Notes Reviewed: Yes Allergies: Coded Allergies: Sulfa (Sulfonamide Antibiotics) (Verified Allergy, Intermediate, HIVES, ) Scheduled Ferrous Sulfate (Feosol) 325 Mg Tablet 325 MG PO DAILYWM Omeprazole (Omeprazole) 20 Mg Tablet.dr 20 MG PO DAILY Prednisone (PredniSONE) 20 Mg Tablet 20 MG PO DAILY Scheduled PRN Ondansetron ODT (Zofran ODT) 4 Mg Tablet 4 MG PO Q4H PRN PRN For Nausea General Time Seen by MD: 10:53 Chief Complaint Abdominal pain Hx Obtained From: Patient Arrived By: Walk-in Sudden in Onset?: No Onset Occurred: Yesterday Symptom Duration: Since onset Progression since Onset: Gradually worsening Location: : Diffuse Quality: Painful Radiation: : Does not radiate Severity: Current: Moderate Severity: Maximum: Moderate Recent Healthcare: Recent testing, Previous diagnosis, Prior workup Similar Sx Previous: Yes Past Medical History Past Medical History GERD Hiatal hernia Chronic abdominal pain - unclear etiology Hx kidney stones Past Surgical History Lithotripsy Family History Colon CA Smoking History Never Smoker Social History Alcohol Use: Denies alcohol use Drug Use: Denies drug use Ambulatory Status Independent Review of Systems Constitutional: Denies: Chills, Fever GI: Reports: Abdominal pain, Nausea, Denies: Constipation, Diarrhea, Vomiting Female: Denies: Dysuria Musculoskeletal: Denies: Back pain Complete sys rev & neg: except as marked. Physical Exam Vital Signs Vital Signs (First) Date Time Temp Pulse Resp B/P Pulse Ox O2 Delivery O2 Flow Rate FiO2 12/01/16 09:51 36.8 78 18 141/79 100 Room Air Initial VS: Reviewed, Vital signs normal Head / Eyes: Atraumatic, Normocephalic ENT: Mucous membranes moist, Conjunctiva normal, No scleral icterus Neck: Supple, Full range of motion Extremities: Vascular intact, Neuro intact, No swelling Skin: Warm, Dry, No cyanosis Neurologic: Alert, Oriented, Nonfocal Psychiatric: Mood/affect normal, Behavior normal, Normal thought content General/Constitutional: Awake, Alert, No acute distress, Well appearing, Cooperative, Not toxic appearing Appearance / Presentation: Positive: Obese Respiratory / Chest: Breath sounds NL, Breath sounds = bilat, No respiratory distress, No rales, No rhonchi, No wheezing Cardiovascular: Heart rate NL, Regular rhythm, Heart sounds NL, No murmurs Abdomen: Atraumatic, Soft, No guarding, No rebound, No distention, No palpable mass Mild diffuse abdominal tenderness, increased epigastric Back: Full range of motion, Painless range of motion Interpretation & Diagnostics Lab Results Interpretation Result Diagram: 12/01/16 1136 12/01/16 1136 Test 12/01/16 11:36 12/01/16 12:07 White Blood Count 8.9th/mm3 (3.8-10.1) Red Blood Count 4.67mil/mm3 (3.90-5.20) Hemoglobin 13.3g/dL (12.0-15.6) Hematocrit 40.4% (35.0-46.0) Mean Corpuscular Volume 86.5fL (81-100) Mean Corpuscular Hemoglobin 28.5pg (27.0-35.0) Mean Corpuscular Hemoglobin Concent 32.9% (32.0-37.0) Red Cell Distribution Width 15.6% (12.3-15.4) Platelet Count 190bil/L (150-400) Neutrophils (%) (Auto) 82.4% (40-74) Lymphocytes (%) (Auto) 10.2% (14-46) Monocytes (%) (Auto) 4.6% (4-12) Eosinophils (%) (Auto) 2.0% (0-5) Basophils (%) (Auto) 0.7% (0-3) Sodium Level 139mEq/L (134-144) Potassium Level 4.4mEq/L (3.5-5.2) Chloride Level 102mEq/L (97-108) Carbon Dioxide Level 23mmol/L (18-29) Blood Urea Nitrogen 12mg/dL (6-24) Creatinine 0.64mg/dL (0.57-1.00) Estimat Glomerular Filtration Rate 145mL/min (>59) Glucose Level 103mg/dL (60-99) Calcium Level 8.8mg/dL (8.5-10.1) Magnesium Level 1.9mg/dL (1.6-2.6) Total Bilirubin 0.2mg/dL (0.0-1.2) Aspartate Amino Transf (AST/SGOT) 18U/L (0-50) Alanine Aminotransferase (ALT/SGPT) 10U/L (0-32) Alkaline Phosphatase 55U/L (25-150) Total Protein 6.4g/dL (6.4-8.4) Albumin 3.9g/dL (3.4-5.0) Lipase 34U/L (13-60) Hold Moss Top Tube Received (Received) Urine Color Yellow (YELLOW) Urine Appearance Hazy (CLEAR,HAZY) Urine pH 5.5 (5.0-8.0) Urine Specific [place] 1.025 (1.003-1.035) Urine Protein Negativemg/dL (NEG,TRACE) Urine Glucose (UA) Negativemg/dL (NEGATIVE) Urine Ketones Negativemg/dL (NEGATIVE) Urine Occult Blood Trace (NEGATIVE) Urine Nitrite Negative (NEGATIVE) Urine Bilirubin Negative (NEGATIVE) Urine Urobilinogen Normalmg/dL (NORMAL) Urine Leukocyte Esterase Negative (NEGATIVE) Urine RBC 0-2/hpf (0-2) Urine WBC 0-5/hpf (0-5) Urine Epithelial Cells Many/hpf (NONE-MOD) Urine Crystals Amorphous urates (NONE Urine Bacteria None/hpf (NONE-FEW) Urine Hyaline Casts None/lpf (NONE) Urine Granular Casts None seen (NONE SEEN) Urine Waxy Casts None seen (NONE SEEN) Urine Red Blood Cell Casts None seen (NONE SEEN) Urine White Blood Cell Casts None seen (NONE SEEN) Urine Mucus Present (None Seen) Urine Trichomonas None seen (NONE SEEN) Urine Yeast None (NONE SEEN) Urinalysis Comment None Urine Culture Reflexed Not indicated Re-Eval/Medical Decision Med Decision/Clinical Course 41-year-old female history of chronic abdominal pain with extensive workups for endoscopy and colonoscopies with no identifiable cause presenting with her typical acute exacerbation of her chronic abdominal pain. She has no other associated symptoms. She does have a history of reflux. She has mild epigastric tenderness. There is no rebound or guarding. Her abdominal exam is quite reassuring. Her labs are unremarkable. Her urine is negative. Her pain improved minimally with Toradol and GI cocktail. I do not see any emergent indications for hospitalization or further workup. I discussed with the patient. She is agreeable with plan to follow up with her GI doctor and her primary doctor. Return precautions given. Source of Hx: Old records Re-Evaluation/Progress : Time of Eval: 12:25 Re-Evaluation/Progress Note: Pt rechecked. Informed pt of plan for discharge. Pt understands and agrees with plan for discharge. F/U instructions and RTER warnings given. All questions addressed. Counseled Regarding: Diagnosis, Lab results, Need for follow-up, When/why to return to ED Discharge & Departure Primary Impression: Chronic abdominal pain Disposition: Home Discharge Condition All VS Reviewed: Yes Condition: Stable Patient Instructions: Chronic Abdominal Pain (ED) Additional Instructions: The cause of your pain is uncertain, but does not appear dangerous at the moment. Your labs and physical exam are reassuring. Return to the emergency department if you experience severe pain, persistent vomiting, fever, or for other concerning symptoms. Follow-up with your primary care doctor in 2-3 days for a recheck. Further evaluation may be considered at that time. Referrals: RANJEET CH/ISACC Dennis Attestation Portions of this note were transcribed by Clifton Townsend. I, Dr. Ng personally performed the history, physical exam and medical decision-making; I reviewed and confirmed the accuracy of the information in the transcribed note. copies to: RANJEET CH/Mauricio Waters MD Dec 01, 2016 10:54 CLIFTON TOWNSEND Dec 01, 2016 11:25
[2016-12-01] MEDS ORDERED: LidocaineVisc 2%:Antacid 1:1 10 mL Syringe PO ONE (11:30)
[2016-12-01 11:47] LABS: BASOPHILS % (AUTO) 0.7 % (0-3); MONOCYTES % (AUTO) 4.6 % (4-12); Mean Corpuscular Hemoglobin 28.5 pg (27.0-35.0); Mean Corpuscular Volume 86.5 fL (81-100); NEUTROPHILS % (AUTO) 82.4 % (40-74); Platelet Count 190 bil/L (150-400)
[2016-12-01 12:07] LABS: Magnesium 1.9 mg/dL (1.6-2.6)
[2016-12-01] MEDS ORDERED: ONDA4TAB9 PO (12:43)
[2016-12-01 12:45] LABS: APPEARANCE,URINE HAZY (CLEAR,HAZY); COLOR,URINE YELLOW (YELLOW)
[2016-12-01 12:46] LABS: OCCULT BLOOD,URINE TRACE (NEGATIVE); PH,URINE 5.5 (5.0-8.0); UROBILINOGEN,URINE NORMAL (NORMAL)
[2016-12-01] MEDS ORDERED: HYDROcodone-APAP 5-325 mg Tablet PO ONE (12:50)
[2016-12-01 13:15] VITALS: BP 117/72; PULSE 63; RESP 16; O2SAT 99
== END 2016-12-01 13:18 | disposition home or self-care (01) ==
LOC: SED 09:37
DX: R10.84 Generalized abdominal pain (principal); R10.13 Epigastric pain; G89.29 Other chronic pain; K21.9 Gastro-esophageal reflux disease without esophagitis; Z87.442 Personal history of urinary calculi; Z88.2 Allergy status to sulfonamides
CPT/HCPCS: 36415; 80053; 81000; 83690; 83735; 85025; 96372; 99284; J1885